=== PATIENT | male | born 1960 | race Caucasian/White ===

== ENCOUNTER 2019-06-13 16:27 | Inpatient (IN) | payer BC ==
[~2019-06-13] VITALS: Ht 180.3 cm; Wt 99.8 kg
[2019-06-13 17:40] LABS: BASOPHILS ABSOLUTE AUTO 0.03 K/mm3 (0.00-0.23); BASOPHILS PERCENT AUTO 0 % (0-2); EOSINOPHILS ABSOLUTE AUTO 0.01 K/mm3 (0.00-0.68); EOSINOPHILS PERCENT AUTO 0 % (0-6); Hematocrit 50.7 % (37.0-53.0); Hemoglobin 16.5 g/dL (13.5-17.5); IMMATURE GRAN ABSOLUTE AUTO 0.06 K/mm3 (0.00-0.10); IMMATURE GRAN PERCENT AUTO 0 % (0-1); LYMPHOCYTES ABSOLUTE AUTO 1.08 K/mm3 (0.84-5.20); LYMPHOCYTES PERCENT AUTO 6 % (21-46); MONOCYTES ABSOLUTE AUTO 1.23 K/mm3 (0.16-1.47); MONOCYTES PERCENT AUTO 7 % (4-13); Mean Corpuscular HGB 29.6 pg (26.0-34.0); Mean Corpuscular HGB Conc 32.5 g/dL (31.5-36.5); Mean Corpuscular Volume 91 fL (80-100); Mean Platelet Volume 10.9 fL (9.1-12.4); NEUTROPHILS ABSOLUTE AUTO 14.78 K/mm3 (1.96-9.15); NEUTROPHILS PERCENT AUTO 86 % (41-73); Platelet Count 235 K/mm3 (150-400); RDW Coefficient Variation 12.7 % (11.7-14.2); RDW Standard Deviation 42.6 fL (35.1-46.3); Red Blood Cell Count 5.57 M/mm3 (4.30-5.90); White Blood Cell Count 17.19 K/mm3 (4.00-11.30)
[2019-06-13 18:00] LABS: Alanine Aminotransfer (ALT/SGP 44 U/L (12-78); Albumin, Blood 4.2 g/dL (3.4-5.0); Alk Phos 54 U/L (50-136); Anion Gap 5 mmol/L (6-16); Aspartate Aminotrans (AST/SGOT 20 U/L (12-37); Blood Urea Nitrogen 20 mg/dL (8-24); Bun/Creatinine Ratio 17.5 (12.0-20.0); CO2, Blood 27 mmol/L (21-32); Calcium, Blood 9.5 mg/dL (8.5-10.1); Chloride, Blood 103 mmol/L (98-108); Creatinine, Blood 1.14 mg/dL (0.60-1.20); Globulin, Blood 4.1 g/dL (2.2-4.0); Glomerular Filtration Rate >60 (60-); Glucose, Blood 125 mg/dL (70-99); Potassium, Blood 4.5 mmol/L (3.5-5.5); Sodium, Blood 135 mmol/L (136-145); Total Protein, Blood 8.3 g/dL (6.4-8.2)
[2019-06-13 22:52] LABS: Source, Urine Clean Catch
[2019-06-13 22:57] LABS: Appearance, Urine Clear (Clear); Bilirubin, Urine Neg (Neg); Blood, Urine 2+ (Neg); Color, Urine Amber (P-Yellow); Glucose Qualitative, Urine Neg (Neg); Ketones, Urine 2+ (Neg); Leukocyte Esterase, Urine Neg (Neg); Nitrite, Urine Neg (Neg); Protein, Urine 1+ (Neg); Specific Gravity, Urine 1.015 (1.003-1.022); Urobilinogen, Urine NORM (Normal); pH, Urine 6.5 (5.0-8.0)
[2019-06-13 23:02] LABS: Bacteria Mod /hpf; Mucus Light (0-Heavy); Squamous Epithelial Cells Not Seen /hpf (Few); White Blood Cells, Urine 0-2 /hpf (0-5)
--- NOTE | 2019-06-13 23:49 | NUR ---
ARRIVES TO ROOM VIA GURNEY FROM ED FOR APPENDICITIS. PT ABLE TO STAND AND AMBULATE TO BR WITH MIN ASSIST. PT HAS BEEN MEDICATED FOR PAIN, IVF STARTED. NPO, SURGICAL PACKET ON CHART. SPOUSE AT BEDSIDE. NO FURTHER QUESTIONS OR CONCERNS AT THIS TIME.
--- NOTE | 2019-06-14 04:38 | NUR ---
PT HAS DONE WELL SINCE COMING TO UNIT. PAIN IS MANAGED WELL WITH DILAUDID. DENIES NAUSEA. CONT IVF AND IV ABX. NEW 18G PLACED IN LEFT HAND. NPO AND SURGICAL PACKET ON CHART. BLOOD CONSENT SIGNED.
--- NOTE | 2019-06-14 07:31 | NUR ---
DENIES ANY PAIN, NAUSEA OR ANY DISCOMFORT AT THIS TIME, NPO, AT BEDSIDE, PT WANT TO GO BACK TO SLEEP AT THIS TIME, CONT. TO MONITOR FOR ANY CHANGES.
--- NOTE | 2019-06-14 10:52 | NUR ---
PT IN OR.
--- NOTE | 2019-06-14 12:40 | NUR ---
COVERING LUNCH FOR BRYAN JALLOH. PT ARRIVED BACK TO ROOM FROM PACU. TRANSFERRED INDEPENDENTLY TO BED FROM [facility]. LAP ABX SITES X3 COVERED W/GAUZE. CDI. DENIES PAIN OR N/V. REPORT GIVEN TO BRYAN JALLOH.
--- NOTE | 2019-06-14 12:49 | NUR ---
S/P LAP CHOLECYSTECTOMY, PT STATES " I FEEL MUCH BETTER" DENIES ANY PAIN OR NAUSEA, EATING SOME ICE CHIPS, LUNGS CLEAR, HRR, ACTIVE BT'S X4, ABD MILDLY DISTENDED, ABD W/ 3 LAP INCISIONS, GAUZE DSG NOTED C/D/I, CONT. TO MONITOR FOR ANY CHANGES, MEDICATE FOR PAIN PRN, ENCOURAGE OOB TO AMBULATE.
[2019-06-14] MEDS ORDERED: OXYC5 PO (13:19)
[2019-06-14] MEDS ORDERED: AMOCLA875 PO (13:20)
--- NOTE | 2019-06-14 16:15 | NUR ---
CARE ASSUMED OF PT AT 1610, WILL MONITOR UNTIL DISCHARGE.
--- NOTE | 2019-06-14 16:50 | NUR ---
TOLERATED FULL LIQUIDS AND REGULAR TRAY, DENIES ANY PAIN, VOIDING WITHOUT DIFFICULTY, AMBULATED DOWN THE HALLS, DSG C/D/I, DR. DUDLEY NOTIFIED, PT DC'D HOME, DC INSTRUCTIONS GIVEN, VERBALIZED UNDERSTANDING.
--- NOTE | 2019-06-14 16:51 | NUR ---
DISCHARGE PT WAS PROVIDED WITH WRITTEN AND VERBAL DISCHARGE INSTRUCTIONS BY SHUBHAM ADAMS. PT ASSISTED OUT IN W/C. WILL CONTINUE TO MONITOR.
== END 2019-06-14 16:48 | disposition home or self-care (01) | DRG 855 ==
LOC: ER 16:27 → SURS 21:24
PROVIDERS: Physician Assistant; ADMIT Surgery
PROC: 0DTJ4ZZ Resection of Appendix, Percutaneous Endoscopic Approach (ICD-10-PCS; principal; 2019-06-14 10:00)
DX: A41.9 Sepsis, unspecified organism (principal); K37 Unspecified appendicitis; Z87.891 Personal history of nicotine dependence
CPT/HCPCS: 36415; 74177; 80053; 81001; 83605; 83690; 83735; 85025; J1100; J1170; J1885; J2370; J2405; J2543; J2704; J3010; J7030; J7120; Q9967